=== PATIENT | female | born 1955 | race Caucasian/White ===

== ENCOUNTER 2022-12-15 09:35 | Observation (INO) | payer OTHER ==
[2022-12-15 11:27] LABS: VENOUS O2 SATURATION 23.3 % (70-80); VENOUS PCO2 55.2 mmHg (38-52); VENOUS PH 7.348 (7.310-7.410)
[2022-12-15 11:27] LABS: EOS % 1.5 % (0-4.5); HEMATOCRIT 32.6 % (32.4-45.2); HEMOGLOBIN 10.7 GM/dL (10.7-15.3); LYMPH % 35.7 % (8-40); MCH 26.3 pg (25.7-33.7); MCHC 32.9 g/dl (32.0-36.0); MEAN PLT VOLUME 8.7 fl (7.5-11.1); MONO % 11.6 % (3.8-10.2); NEUT % 50.2 % (42.8-82.8); PLATELET COUNT 179 10^3/uL (134-434); RBC 4.07 M/mm3 (3.60-5.2); WHITE BLOOD COUNT 4.6 K/mm3 (4.0-10.0)
[2022-12-15 11:39] LABS: COCAINE, UR NEGATIVE (NEGATIVE); METHADONE, UR NEGATIVE (NEGATIVE); URINE AMPHETAMINES NEGATIVE (NEGATIVE); URINE BENZODIAZEPINES NEGATIVE (NEGATIVE)
[2022-12-15 11:40] LABS: OPIATES, URI NEGATIVE (NEGATIVE); PHENCYCLIDINE,URINE NEGATIVE (NEGATIVE); URINE BARBITURATES NEGATIVE (NEGATIVE)
[2022-12-15 11:48] LABS: PH,URINE 5.5 (5.0-8.0); URINE APPEARANCE CLEAR; URINE BILIRUBIN NEGATIVE (NEGATIVE); URINE COLOR YELLOW; URINE GLUCOSE (UA) NEGATIVE (NEGATIVE); URINE KETONE NEGATIVE (NEGATIVE); URINE LEUK ESTERASE NEGATIVE (NEGATIVE); URINE NITRITE NEGATIVE (NEGATIVE); URINE PROTEIN NEGATIVE (NEGATIVE); URINE UROBILINOGEN 0.2 mg/dL (0.2-1.0)
[2022-12-15 11:50] LABS: CHLORIDE 102 mmol/L (98-107); SODIUM 139 mmol/L (136-145)
[2022-12-15 11:54] LABS: ALBUMIN 3.9 g/dl (3.4-5.0); ANION GAP 6 MMOL/L (8-16); BLOOD UREA NITROGEN 9.3 mg/dL (7-18); CALCIUM 9.7 mg/dL (8.5-10.1); CO2 31 mmol/L (21-32); GLUCOSE,RANDOM 94 mg/dL (74-106); MAGNESIUM 2.3 mg/dL (1.8-2.4)
[2022-12-15 11:56] LABS: CREATININE 0.8 mg/dL (0.55-1.3); SGOT/AST 36 U/L (15-37); SGPT/ALT 29 U/L (13-61)
[2022-12-15 11:57] LABS: BILIRUBIN,TOTAL 0.5 mg/dL (0.2-1)
[2022-12-15 11:58] LABS: TOT PROT 7.4 g/dl (6.4-8.2)
[2022-12-15 11:59] LABS: ALK PHOS 105 U/L (45-117)
[2022-12-15] MEDS: HEPARIN NA (PORCINE) 5,000 UNITS/ML 1ML VIAL SQ SCH (22:40)
[2022-12-15] MEDS: ACYCLOVIR 400 MG TABLET PO SCH (23:45)
[2022-12-16 02:16] VITALS: BMI 24.6
[2022-12-16] MEDS ORDERED: ACETAMINOPHEN 325 MG TABLET (FP) PO PRN (07:22)
[2022-12-16] MEDS: ACYCLOVIR 400 MG TABLET PO SCH ×2 (09:10→22:34)
[2022-12-16] MEDS: HEPARIN NA (PORCINE) 5,000 UNITS/ML 1ML VIAL SQ SCH ×2 (09:10→22:32)
[2022-12-16 09:52] LABS: BASO % 1.2 % (0-2.0); EOS % 2.9 % (0-4.5); HEMATOCRIT 31.8 % (32.4-45.2); HEMOGLOBIN 10.8 GM/dL (10.7-15.3); LYMPH % 31.4 % (8-40); MEAN CELL VOLUME 79.3 fl (80-96); MONO % 9.4 % (3.8-10.2); NEUT % 55.1 % (42.8-82.8); PLATELET COUNT 174 10^3/uL (134-434); RBC 4.01 M/mm3 (3.60-5.2); RDW 15.1 % (11.6-15.6); WHITE BLOOD COUNT 4.1 K/mm3 (4.0-10.0)
[2022-12-16 10:18] LABS: CALCIUM 9.1 mg/dL (8.5-10.1)
[2022-12-16 10:19] LABS: BLOOD UREA NITROGEN 9.4 mg/dL (7-18)
[2022-12-16 10:22] LABS: CREATININE 0.8 mg/dL (0.55-1.3)
[2022-12-16 12:15] LABS: MAGNESIUM 2.3 mg/dL (1.8-2.4)
[2022-12-16] MEDS ORDERED: QUEtiapine FUMARATE 25 MG TABLET PO SCH (22:00)
[2022-12-16] MEDS: DOCUSATE SODIUM 100 MG CAPSULE (FP) PO SCH (22:31)
[2022-12-17 02:24] VITALS: RESP 18
[2022-12-17] MEDS: DOCUSATE SODIUM 100 MG CAPSULE (FP) PO SCH ×2 (06:02→15:14)
[2022-12-17 09:06] LABS: BASO % 0.8 % (0-2.0); EOS % 1.6 % (0-4.5); HEMATOCRIT 32.6 % (32.4-45.2); HEMOGLOBIN 10.8 GM/dL (10.7-15.3); LYMPH % 32.1 % (8-40); MCH 26.6 pg (25.7-33.7); MCHC 33.1 g/dl (32.0-36.0); MEAN CELL VOLUME 80.4 fl (80-96); MEAN PLT VOLUME 8.9 fl (7.5-11.1); MONO % 9.3 % (3.8-10.2); NEUT % 56.2 % (42.8-82.8); PLATELET COUNT 172 10^3/uL (134-434); RBC 4.05 M/mm3 (3.60-5.2); WHITE BLOOD COUNT 3.9 K/mm3 (4.0-10.0)
[2022-12-17 09:47] LABS: BLOOD UREA NITROGEN 13.3 mg/dL (7-18)
[2022-12-17 09:50] LABS: ALBUMIN 3.5 g/dl (3.4-5.0); CALCIUM 9.1 mg/dL (8.5-10.1); MAGNESIUM 2.3 mg/dL (1.8-2.4)
[2022-12-17 09:53] LABS: BILIRUBIN,TOTAL 0.6 mg/dL (0.2-1); CREATININE 0.8 mg/dL (0.55-1.3)
[2022-12-17 09:55] LABS: TOT PROT 6.5 g/dl (6.4-8.2)
[2022-12-17] MEDS ORDERED: DONEPEZIL HCL 5 MG TABLET (FP) PO SCH (10:00)
[2022-12-17] MEDS: HEPARIN NA (PORCINE) 5,000 UNITS/ML 1ML VIAL SQ SCH (11:01)
[2022-12-17] MEDS: ACYCLOVIR 400 MG TABLET PO SCH (11:03)
[2022-12-17 16:05] VITALS: BP 162/67; PULSE 65; TEMP 98
== END 2022-12-17 16:00 | disposition home health service (06) ==
LOC: JER 09:35 → JERBED 13:23 → J8W 22:03
PROVIDERS: ADMIT Internal Medicine; ATTEND Nurse Practitioner Acute Care
DX: F23 Brief psychotic disorder (principal); Z98.84 Bariatric surgery status; B00.89 Other herpesviral infection; G30.8 Other Alzheimer's disease; R82.5 Elevated urine levels of drugs, medicaments and biological substances; F32.A Depression, unspecified; F02.80 Dementia in other diseases classified elsewhere, unspecified severity, without behavioral disturbance, psychotic disturbance, mood disturbance, and anxiety; R41.0 Disorientation, unspecified; Z29.8 Encounter for other specified prophylactic measures
CPT/HCPCS: 0241U-QW; 36415; 70450-TC; 80048; 80053; 80307; 81003; 82607; 82803; 83735; 84439; 84443; 85025; 86780; 87086; 93005; 93010; 97116-GP; 97161-GP; 99285-25; G0378; J1644

== ENCOUNTER 2023-01-08 17:43 | Observation (INO) | payer OTHER ==
[2023-01-08 18:05] VITALS: BMI 25.0
[2023-01-08 20:53] LABS: BASO % 0.9 % (0-2.0); EOS % 1.7 % (0-4.5); HEMATOCRIT 30.2 % (32.4-45.2); LYMPH % 36.6 % (8-40); MCH 26.5 pg (25.7-33.7); MCHC 33.2 g/dl (32.0-36.0); MEAN CELL VOLUME 79.9 fl (80-96); MEAN PLT VOLUME 9.3 fl (7.5-11.1); MONO % 9.9 % (3.8-10.2); NEUT % 50.9 % (42.8-82.8); PLATELET COUNT 177 10^3/uL (134-434); RBC 3.78 M/mm3 (3.60-5.2); RDW 14.9 % (11.6-15.6); WHITE BLOOD COUNT 5.5 K/mm3 (4.0-10.0)
[2023-01-08 20:54] LABS: POTASSIUM 3.2 mmol/L (3.5-5.1)
[2023-01-08 20:56] LABS: ALBUMIN 3.7 g/dl (3.4-5.0); CALCIUM 9.3 mg/dL (8.5-10.1)
[2023-01-08 20:57] LABS: BLOOD UREA NITROGEN 13.3 mg/dL (7-18)
[2023-01-08 21:00] LABS: CREATININE 0.8 mg/dL (0.55-1.3)
[2023-01-08 21:01] LABS: BILIRUBIN,TOTAL 0.3 mg/dL (0.2-1); TOT PROT 6.8 g/dl (6.4-8.2)
[2023-01-08] MEDS ORDERED: POTASSIUM CHLORIDE ORAL LIQUID 20 MEQ/15 ML PO ONE (21:14)
[2023-01-08] MEDS ORDERED: POTASSIUM CHLORIDE ORAL LIQUID 20 MEQ/15 ML ONE (23:20)
[2023-01-09 09:26] LABS: EOS % 4.3 % (0-4.5); HEMATOCRIT 29.5 % (32.4-45.2); HEMOGLOBIN 9.8 GM/dL (10.7-15.3); LYMPH % 39.3 % (8-40); MCH 26.6 pg (25.7-33.7); MCHC 33.2 g/dl (32.0-36.0); MEAN CELL VOLUME 80.3 fl (80-96); MEAN PLT VOLUME 9.7 fl (7.5-11.1); MONO % 10.6 % (3.8-10.2); NEUT % 44.8 % (42.8-82.8); PLATELET COUNT 179 10^3/uL (134-434); RBC 3.67 M/mm3 (3.60-5.2); RDW 14.7 % (11.6-15.6); RETICULOCYTES 0.79 % (0.5-1.5); WHITE BLOOD COUNT 3.9 K/mm3 (4.0-10.0)
[2023-01-09] MEDS: ENOXAPARIN NA (PORCINE) 40 MG/0.4 ML DISP.SYRIN SQ SCH (09:33)
[2023-01-09] MEDS: DONEPEZIL HCL 5 MG TABLET (FP) PO SCH (09:33)
[2023-01-09 09:42] LABS: POTASSIUM 4.2 mmol/L (3.5-5.1)
[2023-01-09] MEDS: NEO/POLYMYX B SULF/DEXAMETH OPHTHALMIC 5ML BOTTLE OD SCH (09:46)
[2023-01-09 09:49] LABS: ALBUMIN 3.2 g/dl (3.4-5.0)
[2023-01-09 09:50] LABS: BLOOD UREA NITROGEN 9.6 mg/dL (7-18); CALCIUM 8.9 mg/dL (8.5-10.1)
[2023-01-09 09:51] LABS: CREATININE 0.7 mg/dL (0.55-1.3); MAGNESIUM 2.1 mg/dL (1.8-2.4)
[2023-01-09 09:52] LABS: BILIRUBIN,TOTAL 0.5 mg/dL (0.2-1)
[2023-01-09 09:53] LABS: PHOSPHOROUS 3.5 mg/dL (2.5-4.9)
[2023-01-09] MEDS: ACYCLOVIR 400 MG TABLET PO SCH ×2 (11:25→21:30)
[2023-01-09] MEDS ORDERED: IRON SUCROSE INJECTION 100 MG in SODIUM CHLORIDE 95 ML IVPB ONE (16:43)
[2023-01-09] MEDS ORDERED: QUEtiapine FUMARATE 25 MG TABLET PO SCH ×2 (22:00)
[2023-01-10] MEDS ORDERED: HALOPERIDOL LACTATE 5 MG/ML IM ONE (02:00)
[2023-01-10] MEDS: ENOXAPARIN NA (PORCINE) 40 MG/0.4 ML DISP.SYRIN SQ SCH (10:45)
[2023-01-10] MEDS: DONEPEZIL HCL 5 MG TABLET (FP) PO SCH (10:45)
[2023-01-10] MEDS: ACYCLOVIR 400 MG TABLET PO SCH ×2 (10:47→21:41)
[2023-01-10] MEDS: NEO/POLYMYX B SULF/DEXAMETH OPHTHALMIC 5ML BOTTLE OD SCH (10:48)
[2023-01-10] MEDS ORDERED: IRON SUCROSE INJECTION 100 MG in SODIUM CHLORIDE 95 ML IVPB ONE (17:00)
[2023-01-10] MEDS: QUEtiapine FUMARATE 25 MG TABLET PO SCH (21:41)
[2023-01-11] MEDS: DONEPEZIL HCL 5 MG TABLET (FP) PO SCH (10:00)
[2023-01-11] MEDS: ENOXAPARIN NA (PORCINE) 40 MG/0.4 ML DISP.SYRIN SQ SCH (10:00)
[2023-01-11] MEDS: ACYCLOVIR 400 MG TABLET PO SCH ×2 (10:01→21:16)
[2023-01-11] MEDS: NEO/POLYMYX B SULF/DEXAMETH OPHTHALMIC 5ML BOTTLE OD SCH (10:03)
[2023-01-11] MEDS ORDERED: SIMETHICONE 80 MG TAB.CHEW (FP) PO PRN (14:05)
[2023-01-11] MEDS: QUEtiapine FUMARATE 25 MG TABLET PO SCH (21:16)
[2023-01-12] MEDS: ENOXAPARIN NA (PORCINE) 40 MG/0.4 ML DISP.SYRIN SQ SCH (09:53)
[2023-01-12] MEDS: NEO/POLYMYX B SULF/DEXAMETH OPHTHALMIC 5ML BOTTLE OD SCH (09:54)
[2023-01-12] MEDS: ACYCLOVIR 400 MG TABLET PO SCH ×2 (09:54→21:20)
[2023-01-12] MEDS: DONEPEZIL HCL 5 MG TABLET (FP) PO SCH (09:54)
[2023-01-12] MEDS: ACETAMINOPHEN 325 MG TABLET (FP) PO PRN (16:50)
[2023-01-12] MEDS: QUEtiapine FUMARATE 25 MG TABLET PO SCH (21:20)
[2023-01-13] MEDS: ACYCLOVIR 400 MG TABLET PO SCH ×2 (10:51→21:53)
[2023-01-13] MEDS: DONEPEZIL HCL 5 MG TABLET (FP) PO SCH (10:51)
[2023-01-13] MEDS: ENOXAPARIN NA (PORCINE) 40 MG/0.4 ML DISP.SYRIN SQ SCH (10:52)
[2023-01-13] MEDS: NEO/POLYMYX B SULF/DEXAMETH OPHTHALMIC 5ML BOTTLE OD SCH (10:53)
[2023-01-13] MEDS: ACETAMINOPHEN 325 MG TABLET (FP) PO PRN (14:27)
[2023-01-13] MEDS: QUEtiapine FUMARATE 25 MG TABLET PO SCH (21:53)
[2023-01-14 05:50] VITALS: TEMP 98.2
[2023-01-14 08:38] VITALS: BP 148/75; PULSE 53; RESP 18
[2023-01-14] MEDS: DONEPEZIL HCL 5 MG TABLET (FP) PO SCH (09:47)
[2023-01-14] MEDS: ACYCLOVIR 400 MG TABLET PO SCH (09:47)
[2023-01-14] MEDS: ENOXAPARIN NA (PORCINE) 40 MG/0.4 ML DISP.SYRIN SQ SCH (09:47)
[2023-01-14] MEDS ORDERED: NEO/POLYMYX B SULF/DEXAMETH OPHTHALMIC 5ML BOTTLE OS SCH (10:00)
== END 2023-01-14 14:52 | disposition home or self-care (01) ==
LOC: JER 17:43 → JERBED 21:21 → J5S 01-09 03:04 → J7W 01-09 11:47
PROVIDERS: ADMIT Student in an Organized Health Care Education/Training Program; ATTEND Internal Medicine
PROC: 3E033GC Introduction of Other Therapeutic Substance into Peripheral Vein, Percutaneous Approach (ICD-10-PCS; principal; 2023-01-08)
PROC: 3E023GC Introduction of Other Therapeutic Substance into Muscle, Percutaneous Approach (ICD-10-PCS; 2023-01-08)
PROC: 3E013GC Introduction of Other Therapeutic Substance into Subcutaneous Tissue, Percutaneous Approach (ICD-10-PCS; 2023-01-08)
DX: F23 Brief psychotic disorder (principal); R41.0 Disorientation, unspecified; F03.90 Unspecified dementia, unspecified severity, without behavioral disturbance, psychotic disturbance, mood disturbance, and anxiety; I10 Essential (primary) hypertension; E87.6 Hypokalemia; D50.9 Iron deficiency anemia, unspecified; F39 Unspecified mood [affective] disorder; Z86.19 Personal history of other infectious and parasitic diseases; Z86.16 Personal history of COVID-19; Z98.84 Bariatric surgery status
CPT/HCPCS: 0241U-QW; 36415; 70551-TC; 71046-TC-FY; 80053; 82728; 83540; 83550; 83735; 84100; 85025; 85045; 87086; 93005; 93010; 96365; 96367; 96372; 97116-GP; 97161-GP; 99285-25; G0378; J1756

== ENCOUNTER 2023-02-11 14:05 | Emergency (ER) | payer OTHER ==
[2023-02-11 14:17] VITALS: BP 161/72; PULSE 61; RESP 18; TEMP 98.1; BMI 25.0
[2023-02-11 16:02] LABS: HEMATOCRIT 33.4 % (32.4-45.2); HEMOGLOBIN 11.1 GM/dL (10.7-15.3); LYMPH % 40.6 % (8-40); MCH 27.3 pg (25.7-33.7); MCHC 33.3 g/dl (32.0-36.0); MEAN CELL VOLUME 82.1 fl (80-96); MEAN PLT VOLUME 9.2 fl (7.5-11.1); MONO % 8.5 % (3.8-10.2); NEUT % 47.6 % (42.8-82.8); PLATELET COUNT 177 10^3/uL (134-434); RBC 4.06 M/mm3 (3.60-5.2); RDW 16.2 % (11.6-15.6); WHITE BLOOD COUNT 5.1 K/mm3 (4.0-10.0)
[2023-02-11 16:03] LABS: EOS % 2.3 % (0-4.5); VENOUS BASE EXCESS 3.8 mmol/L (-2-2); VENOUS O2 SATURATION 45.2 % (70-80); VENOUS PCO2 46.5 mmHg (38-52); VENOUS PH 7.413 (7.310-7.410)
[2023-02-11 16:19] LABS: POTASSIUM 3.4 mmol/L (3.5-5.1)
[2023-02-11 16:20] LABS: CALCIUM 9.1 mg/dL (8.5-10.1)
[2023-02-11 16:21] LABS: ALBUMIN 3.6 g/dl (3.4-5.0); BLOOD UREA NITROGEN 18.7 mg/dL (7-18); MAGNESIUM 2.4 mg/dL (1.8-2.4)
[2023-02-11 16:24] LABS: CREATININE 0.7 mg/dL (0.55-1.3)
[2023-02-11 16:25] LABS: TOT PROT 6.8 g/dl (6.4-8.2)
[2023-02-11 16:26] LABS: BILIRUBIN,TOTAL 0.4 mg/dL (0.2-1)
[2023-02-11 17:18] LABS: PH,URINE 5.5 (5.0-8.0); URINE APPEARANCE CLEAR; URINE BILIRUBIN NEGATIVE (NEGATIVE); URINE COLOR YELLOW; URINE GLUCOSE (UA) NEGATIVE (NEGATIVE); URINE KETONE NEGATIVE (NEGATIVE); URINE LEUK ESTERASE NEGATIVE (NEGATIVE); URINE NITRITE NEGATIVE (NEGATIVE); URINE PROTEIN NEGATIVE (NEGATIVE); URINE UROBILINOGEN 0.2 mg/dL (0.2-1.0)
[2023-02-11 17:25] LABS: COCAINE, UR NEGATIVE (NEGATIVE); URINE AMPHETAMINES NEGATIVE (NEGATIVE)
[2023-02-11 17:26] LABS: METHADONE, UR NEGATIVE (NEGATIVE); OPIATES, URI NEGATIVE (NEGATIVE); PHENCYCLIDINE,URINE NEGATIVE (NEGATIVE); URINE BENZODIAZEPINES NEGATIVE (NEGATIVE)
[2023-02-11 17:39] LABS: URINE BARBITURATES NEGATIVE (NEGATIVE)
== END 2023-02-11 18:44 | disposition home or self-care (01) ==
LOC: JER 14:05
DX: R41.82 Altered mental status, unspecified (principal); F03.90 Unspecified dementia, unspecified severity, without behavioral disturbance, psychotic disturbance, mood disturbance, and anxiety
CPT/HCPCS: 36415; 80053; 80307; 81003; 82803; 83735; 84443; 85025; 93005; 93010; 99284-25